=== PATIENT | female | born 1950 | race African-American/Black ===

== ENCOUNTER 2017-04-14 21:07 | Emergency (ER) | payer MEDICARE, MEDICAID ==
[~2017-04-14] VITALS: Ht 162.6 cm; Wt 55.0 kg
[~2017-04-14 21:07] MED LIST: BUSP5TAB3 PO; CHOL400T41 PO; DILT120C11 PO; DOCU-138 PO; HYDR-3927 PO; HYDR25TA PO; INSU200I SQ; INSU3INS6 SUBCUT; LIP40 PO; LORA0.5T2 PO; MULT-1146 PO; NICO1PAT15 TP; PANT40TA4 PO; RANI-84 PO; SPIR50TA26 PO; VALS160T2 PO; WARF4TAB39 PO
[2017-04-14 21:11] VITALS: BP 158/70
== END 2017-04-15 01:43 | disposition left against medical advice (07) ==
LOC: ER 22:26
DX: Z53.21 Procedure and treatment not carried out due to patient leaving prior to being seen by health care provider (principal)

== ENCOUNTER 2017-04-25 13:32 | Emergency (ER) | payer MEDICARE, MEDICAID ==
[~2017-04-25] VITALS: Ht 157.5 cm; Wt 56.0 kg
[2017-04-25] MEDS ORDERED: ASPIRIN 325MG EC TABLET PO ONE (14:45)
[2017-04-25] MEDS ORDERED: HYDROCODONE/ACETAMINOPHEN 5/325MG TABLET PO ONE (14:45)
[2017-04-25 15:15] LABS: BASOPHILS % 0.7 % (0.0-2.0); EOSINOPHILS % 0.4 % (0.0-5.0); HEMATOCRIT. 38.4 % (36.0-48.0); HEMOGLOBIN. 13.1 g/dL (12.0-16.0); MEAN CORPUSCULAR HEMOGLOBIN 32.1 pg (28.0-32.0); MEAN CORPUSCULAR VOLUME 94.3 fL (81.0-99.0); MONOCYTES % 11.5 % (2.0-8.0); NEUTROPHILS % 52.4 % (40.0-76.0); PLATELET 162 x1000/uL (130-400); RED BLOOD CELL COUNT 4.07 mill/uL (4.2-5.4); RED CELL DISTRIBUTION WIDTH 15.7 % (11.6-14.6)
[2017-04-25 15:18] LABS: INR 1.6; PARTIAL THROMBOPLASTIN TIME 29.7 sec (23.4-31.0); PROTHROMBIN TIME 16.3 sec (9.4-11.6)
[2017-04-25 15:28] LABS: CARBON DIOXIDE 26 mEq/L (21-32); CHLORIDE 100 mEq/L (98-107); TROPONIN I < 0.02 ng/mL (0.00-0.04)
[2017-04-25 17:11] VITALS: BP 159/88
== END 2017-04-25 17:14 | disposition home or self-care (01) ==
LOC: ER 14:03
DX: R07.9 Chest pain, unspecified (principal); I10 Essential (primary) hypertension; E11.9 Type 2 diabetes mellitus without complications; E78.00 Pure hypercholesterolemia, unspecified; Z87.891 Personal history of nicotine dependence; Z88.8 Allergy status to other drugs, medicaments and biological substances; Z79.4 Long term (current) use of insulin; Z79.01 Long term (current) use of anticoagulants
CPT/HCPCS: 36415; 71010; 80053; 83690; 84484; 85025; 85610; 85730; 93005; 99285

== ENCOUNTER 2017-05-05 12:17 | Inpatient (IN) | payer MEDICARE, MEDICAID ==
[~2017-05-05] VITALS: Ht 157.5 cm; Wt 55.3 kg
[~2017-05-05 12:17] MED LIST changes: +CHOL400T PO; -CHOL400T41 PO; -RANI-84 PO; +RANI150T12 PO
[2017-05-05] MEDS ORDERED: MORPHINE SULFATE 4 MG/ML CPJ (NOT FOR IM USE) IV STA (12:36)
[2017-05-05] MEDS ORDERED: NITROGLYCERIN OINT 1GM/INCH UDPKT TD STA (12:36)
[2017-05-05] MEDS ORDERED: ONDANSETRON HCL 4MG/2ML VIAL IV STA (12:36)
[2017-05-05] MEDS ORDERED: LORAZEPAM 2MG/ML CPJ IV ONE (12:45)
[2017-05-05 13:01] LABS: BASOPHILS % 0.9 % (0.0-2.0); EOSINOPHILS % 0.7 % (0.0-5.0); HEMATOCRIT. 37.5 % (36.0-48.0); HEMOGLOBIN. 12.4 g/dL (12.0-16.0); LYMPHOCYTES % 34.3 % (20.0-50.0); MEAN CORPUSCULAR HEMOGLOBIN 31.8 pg (28.0-32.0); MEAN PLATELET VOLUME 10.2 fl (7.4-10.4); MONOCYTES % 8.5 % (2.0-8.0); NEUTROPHILS % 55.6 % (40.0-76.0); PLATELET 126 x1000/uL (130-400); RED CELL DISTRIBUTION WIDTH 16.2 % (11.6-14.6)
[2017-05-05 13:08] LABS: INR 1.4; PARTIAL THROMBOPLASTIN TIME 26.5 sec (23.4-31.0); PROTHROMBIN TIME 14.6 sec (9.4-11.6)
[2017-05-05 13:17] LABS: CARBON DIOXIDE 25 mEq/L (21-32); CHLORIDE 107 mEq/L (98-107); CREATINE KINASE 292 IU/L (26-192); TROPONIN I < 0.02 ng/mL (0.00-0.04)
[2017-05-05 13:19] LABS: CREATINE KINASE MB FRACTION 17.3 ng/mL (0.5-3.6)
[2017-05-05] MEDS ORDERED: DEXTROSE 50% WATER 50ML SYRINGE IV PRN (16:30)
[2017-05-05 16:33] VITALS: BP 123/68
[2017-05-05] MEDS: PANTOPRAZOLE 40MG DR TABLET PO SCH (16:58)
[2017-05-05] MEDS: FUROSEMIDE 20MG TABLET PO SCH (16:58)
[2017-05-05] MEDS: DOCUSATE SODIUM 100MG CAPSULE PO SCH (16:59)
[2017-05-05] MEDS: BLOOD SUGAR DIAGNOSTIC STRIP TEST SCH ×2 (17:06→19:29)
[2017-05-05] MEDS: INSULIN LISPRO 100 UNITS/ML SUBCUT SCH ×2 (17:07→19:35)
[2017-05-05] MEDS ORDERED: WARFARIN SODIUM 7.5MG TABLET PO SCH (18:00)
[2017-05-05] MEDS: BUPROPION HCL 150MG TABLET XL 24HR PO SCH (18:10)
[2017-05-05] MEDS: LORAZEPAM 0.5MG TABLET PO PRN (19:33)
[2017-05-05] MEDS: ATORVASTATIN CALCIUM 40MG TABLET PO SCH (19:33)
[2017-05-05] MEDS: HYDROCODONE/ACETAMINOPHEN 10/325MG TABLET PO PRN (19:41)
[2017-05-05] MEDS ORDERED: DIPHENHYDRAMINE 50MG CAPSULE PO PRN (20:30)
[2017-05-05] MEDS: NICOTINE 14MG PATCH TD SCH (20:57)
[2017-05-05] MEDS ORDERED: NICOTINE 14MG PATCH TD SCH (21:00)
[2017-05-05] MEDS: TEMAZEPAM 15MG CAPSULE PO PRN (22:15)
[2017-05-06 05:39] LABS: HEMATOCRIT 34.7 % (36.0-48.0); HEMOGLOBIN 11.5 g/dL (12.0-16.0); MEAN CORPUSCULAR HEMOGLOBIN 31.8 pg (28.0-32.0); MEAN CORPUSCULAR VOLUME 95.9 fL (81.0-99.0); PLATELET 117 x1000/uL (130-400); RED BLOOD CELL COUNT 3.62 mill/uL (4.2-5.4); RED CELL DISTRIBUTION WIDTH 16.1 % (11.6-14.6)
[2017-05-06 05:41] LABS: INR 1.8; PROTHROMBIN TIME 18.9 sec (9.4-11.6)
[2017-05-06] MEDS: BLOOD SUGAR DIAGNOSTIC STRIP TEST SCH ×4 (07:30→21:12)
[2017-05-06 07:47] LABS: CARBON DIOXIDE 24 mEq/L (21-32); CREATINE KINASE 233 IU/L (26-192); CREATINE KINASE MB FRACTION 13.6 ng/mL (0.5-3.6); TROPONIN I 0.02 ng/mL (0.00-0.04)
[2017-05-06 08:00] VITALS: BP 135/77
[2017-05-06 08:45] LABS: CHLORIDE 103 mEq/L (98-107)
[2017-05-06] MEDS: DOCUSATE SODIUM 100MG CAPSULE PO SCH (08:54)
[2017-05-06] MEDS: FUROSEMIDE 20MG TABLET PO SCH (08:54)
[2017-05-06] MEDS: NICOTINE 14MG PATCH TD SCH (08:55)
[2017-05-06] MEDS: PANTOPRAZOLE 40MG DR TABLET PO SCH (08:55)
[2017-05-06] MEDS: BUPROPION HCL 150MG TABLET XL 24HR PO SCH (08:55)
[2017-05-06] MEDS: INSULIN LISPRO 100 UNITS/ML SUBCUT SCH ×4 (08:56→21:16)
[2017-05-06] MEDS: INSULIN DETEMIR UD 100 UNITS/ML SYR SUBCUT SCH (10:03)
[2017-05-06 12:00] VITALS: BP 141/83
[2017-05-06] MEDS: LORAZEPAM 0.5MG TABLET PO PRN (12:07)
[2017-05-06] MEDS ORDERED: PANTOPRAZOLE 40MG DR TABLET PO SCH (13:45)
[2017-05-06] MEDS ORDERED: HYDROCODONE/ACETAMINOPHEN 5/325MG TABLET PO SCH (13:45)
[2017-05-06] MEDS: HYDROCHLOROTHIAZIDE 25MG TABLET PO SCH ×2 (13:45→14:28)
[2017-05-06] MEDS ORDERED: DOCUSATE SODIUM 100MG CAPSULE PO SCH (13:45)
[2017-05-06] MEDS ORDERED: LORAZEPAM 0.5MG TABLET PO SCH (14:00)
[2017-05-06] MEDS: LOSARTAN POTASSIUM 100 MG TABLET PO SCH (14:00)
[2017-05-06 16:00] VITALS: BP 143/76
[2017-05-06] MEDS ORDERED: ATORVASTATIN CALCIUM 40MG TABLET PO SCH (17:00)
[2017-05-06] MEDS ORDERED: WARFARIN SODIUM 2MG TABLET PO NR (18:00)
[2017-05-06] MEDS: CHOLECALCIFEROL (VIT D3) 400 UNIT TABLET PO SCH (19:20)
[2017-05-06] MEDS: BUSPIRONE HCL 5MG TABLET PO SCH (19:20)
[2017-05-06 20:00] VITALS: BP 149/81
[2017-05-06] MEDS: ATORVASTATIN CALCIUM 40MG TABLET PO SCH (20:39)
[2017-05-06] MEDS: DILTIAZEM HCL 120MG CAPSULE CD 24HR PO SCH ×2 (20:40→20:44)
[2017-05-06] MEDS: TEMAZEPAM 15MG CAPSULE PO PRN (21:15)
[2017-05-07 00:01] VITALS: BP 132/72
[2017-05-07 04:00] VITALS: BP 129/72
[2017-05-07 06:41] LABS: INR 2.8; PROTHROMBIN TIME 29.5 sec (9.4-11.6)
[2017-05-07] MEDS: BLOOD SUGAR DIAGNOSTIC STRIP TEST SCH ×2 (06:50→12:18)
[2017-05-07] MEDS ORDERED: FAMOTIDINE 20MG TABLET PO SCH (07:40)
[2017-05-07 08:00] VITALS: BP 130/76
[2017-05-07] MEDS: INSULIN LISPRO 100 UNITS/ML SUBCUT SCH ×2 (08:10→13:15)
[2017-05-07] MEDS: LOSARTAN POTASSIUM 100 MG TABLET PO SCH (08:53)
[2017-05-07] MEDS: FUROSEMIDE 20MG TABLET PO SCH (08:53)
[2017-05-07] MEDS: CHOLECALCIFEROL (VIT D3) 400 UNIT TABLET PO SCH (08:53)
[2017-05-07] MEDS: DOCUSATE SODIUM 100MG CAPSULE PO SCH (08:53)
[2017-05-07] MEDS: BUPROPION HCL 150MG TABLET XL 24HR PO SCH (08:53)
[2017-05-07] MEDS: BUSPIRONE HCL 5MG TABLET PO SCH (08:54)
[2017-05-07] MEDS: HYDROCHLOROTHIAZIDE 25MG TABLET PO SCH (08:54)
[2017-05-07] MEDS: NICOTINE 14MG PATCH TD SCH (08:54)
[2017-05-07] MEDS ORDERED: MEDICATION NOT ON FORMULARY EA (Valsartan (Diovan) 160 MG) PO SCH (09:00)
[2017-05-07] MEDS ORDERED: SPIRONOLACTONE 50MG TABLET PO SCH (09:00)
[2017-05-07] MEDS: HYDROCODONE/ACETAMINOPHEN 10/325MG TABLET PO PRN (10:01)
[2017-05-07] MEDS: INSULIN DETEMIR UD 100 UNITS/ML SYR SUBCUT SCH (10:03)
[2017-05-07] MEDS: NITROGLYCERIN 0.4MG TABLET SL SL PRN ×2 (11:00→11:27)
[2017-05-07] MEDS: LORAZEPAM 0.5MG TABLET PO PRN (11:32)
[2017-05-07 12:00] VITALS: BP 147/74
[2017-05-07] MEDS ORDERED: INSULIN LISPRO 100 UNITS/ML SUBCUT SCH (13:15)
[2017-05-07 15:39] VITALS: BP 149/69
[2017-05-07] MEDS ORDERED: BACLOFEN 10MG TABLET PO NR (15:59)
== END 2017-05-07 17:02 | disposition home or self-care (01) | DRG 206 ==
LOC: ER 12:24 → EDBEDREQ 13:31 → 7WST 13:32 → ENRESERV 13:44
PROVIDERS: ADMIT Internal Medicine; ATTEND Internal Medicine
DX: M94.0 Chondrocostal junction syndrome [Tietze] (principal); I48.0 Paroxysmal atrial fibrillation; I50.42 Chronic combined systolic (congestive) and diastolic (congestive) heart failure; I11.0 Hypertensive heart disease with heart failure; F41.9 Anxiety disorder, unspecified; E78.5 Hyperlipidemia, unspecified; M79.1 Myalgia; N28.9 Disorder of kidney and ureter, unspecified; E11.9 Type 2 diabetes mellitus without complications; E78.00 Pure hypercholesterolemia, unspecified; Z72.0 Tobacco use; Z79.4 Long term (current) use of insulin; Z82.49 Family history of ischemic heart disease and other diseases of the circulatory system; Z86.73 Personal history of transient ischemic attack (TIA), and cerebral infarction without residual deficits; Z79.01 Long term (current) use of anticoagulants; Z88.8 Allergy status to other drugs, medicaments and biological substances; Z79.899 Other long term (current) drug therapy
CPT/HCPCS: 36415; 70450; 71010; 80053; 82550; 82553; 82962; 83036; 83690; 83880; 84443; 84484; 85025; 85027; 85610; 85730; 93005; 93306; 93880; 96374; 96375; 99291; J1815; J2060; J2270; J2405

== ENCOUNTER 2017-05-12 18:43 | Emergency (ER) | payer MEDICARE, MEDICAID ==
[~2017-05-12] VITALS: Ht 167.6 cm; Wt 56.0 kg
[2017-05-12] MEDS ORDERED: ONDANSETRON HCL 4MG/2ML VIAL IV STA (19:44)
[2017-05-12] MEDS ORDERED: FAMOTIDINE 20MG TABLET PO STA (19:44)
[2017-05-12] MEDS ORDERED: MAGNESIUM/ALUMINUM HYDROXIDE/SIMETHICONE 30ML UDC PO STA (19:44)
[2017-05-12 20:21] LABS: BASOPHILS % 0.9 % (0.0-2.0); EOSINOPHILS % 0.9 % (0.0-5.0); HEMATOCRIT. 37.6 % (36.0-48.0); HEMOGLOBIN. 12.5 g/dL (12.0-16.0); MEAN CORPUSCULAR HEMOGLOBIN 31.9 pg (28.0-32.0); MEAN CORPUSCULAR VOLUME 95.9 fL (81.0-99.0); MEAN PLATELET VOLUME 9.6 fl (7.4-10.4); MONOCYTES % 11.8 % (2.0-8.0); NEUTROPHILS % 39.4 % (40.0-76.0); PLATELET 128 x1000/uL (130-400); RED BLOOD CELL COUNT 3.92 mill/uL (4.2-5.4)
[2017-05-12 20:29] LABS: INR 2.2; PARTIAL THROMBOPLASTIN TIME 32.7 sec (23.4-31.0); PROTHROMBIN TIME 23.1 sec (9.4-11.6)
[2017-05-12 20:34] LABS: CARBON DIOXIDE 29 mEq/L (21-32); CHLORIDE 106 mEq/L (98-107); TROPONIN I 0.02 ng/mL (0.00-0.04)
[2017-05-12 21:10] VITALS: BP 138/63
== END 2017-05-12 22:00 | disposition home or self-care (01) ==
LOC: ER 19:02
DX: K29.70 Gastritis, unspecified, without bleeding (principal); R11.2 Nausea with vomiting, unspecified; I48.91 Unspecified atrial fibrillation; F41.9 Anxiety disorder, unspecified; E11.9 Type 2 diabetes mellitus without complications; J44.9 Chronic obstructive pulmonary disease, unspecified; I10 Essential (primary) hypertension; Z79.4 Long term (current) use of insulin; Z88.8 Allergy status to other drugs, medicaments and biological substances
CPT/HCPCS: 36415; 71010; 80053; 82962; 83690; 83880; 84484; 85025; 85610; 85730; 93005; 96374; 99285; J2405

== ENCOUNTER 2017-11-28 04:46 | Emergency (ER) | payer MEDICARE, MEDICAID ==
[~2017-11-28] VITALS: Ht 165.1 cm; Wt 68.0 kg
[~2017-11-28 04:46] MED LIST changes: -WARF4TAB39 PO; +WARF4TAB71 PO
[2017-11-28] MEDS ORDERED: MORPHINE SULFATE 4 MG/ML CPJ (NOT FOR IM USE) IV STA (06:14)
[2017-11-28] MEDS ORDERED: ONDANSETRON HCL 4MG/2ML VIAL IV STA (06:14)
[2017-11-28 06:45] LABS: BASOPHILS % 0.1 % (0.0-2.0); EOSINOPHILS % 0.4 % (0.0-5.0); HEMATOCRIT. 39.6 % (36.0-48.0); HEMOGLOBIN. 13.4 g/dL (12.0-16.0); LYMPHOCYTES % 10.5 % (20.0-50.0); MEAN CORPUSCULAR HEMOGLOBIN 32.1 pg (28.0-32.0); MEAN CORPUSCULAR VOLUME 94.9 fL (81.0-99.0); MEAN PLATELET VOLUME 10.7 fl (7.4-10.4); MONOCYTES % 3.6 % (2.0-8.0); NEUTROPHILS % 85.4 % (40.0-76.0); PLATELET 115 x1000/uL (130-400); RED BLOOD CELL COUNT 4.17 mill/uL (4.2-5.4); RED CELL DISTRIBUTION WIDTH 15.2 % (11.6-14.6)
[2017-11-28 06:49] LABS: CLARITY URINE CLEAR (CLEAR); COLOR URINE YELLOW (YELLOW); KETONES URINE NEGATIVE (NEGATIVE); LEUKOCYTE ESTERASE URINE NEGATIVE (NEGATIVE); NITRITE URINE NEGATIVE (NEGATIVE); OCCULT BLOOD URINE NEGATIVE (NEGATIVE); PROTEIN URINE NEGATIVE (NEGATIVE); SPECIFIC GRAVITY URINE 1.021 (1.005-1.030); UROBILINOGEN URINE 0.2 E.U./dL (0.2-1.0)
[2017-11-28 06:50] LABS: PROTHROMBIN TIME 20.6 sec (9.4-11.6)
[2017-11-28 06:51] LABS: CHLORIDE 103 mEq/L (98-107)
[2017-11-28 13:12] VITALS: BP 129/70
== END 2017-11-28 13:25 | disposition home or self-care (01) ==
LOC: ER 04:46
DX: R10.9 Unspecified abdominal pain (principal); R11.2 Nausea with vomiting, unspecified; E11.9 Type 2 diabetes mellitus without complications; F41.9 Anxiety disorder, unspecified; I10 Essential (primary) hypertension; I25.2 Old myocardial infarction; I48.91 Unspecified atrial fibrillation; Z79.01 Long term (current) use of anticoagulants; Z79.4 Long term (current) use of insulin; Z98.890 Other specified postprocedural states; Z88.8 Allergy status to other drugs, medicaments and biological substances
CPT/HCPCS: 36415; 80053; 81003; 83690; 84484; 85025; 85610; 93005; 96374; 96375; 99285; J2270; J2405